=== PATIENT | male | born 1970 | race Caucasian/White ===

== ENCOUNTER → 2016-11-21 | Outpatient (CLI) | payer OTHER ==
[~2016-11-21] MED LIST: LIDOCAINE 1% (MPF) 5 ML VIAL SC ONE; SOD CHLORIDE 0.9% 100 ML ONE
--- NOTE | 2016-11-21 11:52 | RADRPT ---
PROCEDURE: XR Chest. CLINICAL INDICATION: Check PICC line position. TECHNIQUE: Single frontal view. COMPARISON: No prior study is available for comparison. FINDINGS: There is a left arm PICC line with the tip in the lower superior vena cava. there is mild linear at electasis at the left lung base. The lungs are otherwise clear. The heart size is normal. There is no pleural effusion. There is no pneumothorax. IMPRESSION: 1. Left arm PICC line tip in satisfactory position. 2. Mild left basilar atelectasis. 3. Otherwise normal chest radiograph. RPTAT: QQ .Killian Rice MD, MD Date Time Electronically viewed and signed by .Killian Rice MD, on 11/21/2016 11:51 .R/
--- NOTE | 2016-11-21 12:20 | RADRPT ---
PROCEDURE: US guidance for PICC line CLINICAL INDICATION: PICC line placement TECHNIQUE: Multiple real-time images were acquired of the patient's arm utilizing a high resolutio n transducer. This was performed by the PICC line nurse for venous access. COMPARISON: None FINDINGS: Ultrasound guidance for PICC line placement. IMPRESSION: Ultrasound guidance for PICC line placement. RPTAT: AA .Shimon Park MD, MD Date Time Electronically viewed and signed by .Shimon Park MD, on 11/21/2016 12:20 .S/
== END | disposition home or self-care (01) ==
LOC: EDBD 10:11 → RAD 10:11
PROVIDERS: ATTEND Surgery
DX: K63.2 Fistula of intestine (principal)
CPT/HCPCS: 36569; 71010; 76937

== ENCOUNTER → 2016-12-10 | Outpatient (CLI) | payer OTHER ==
--- NOTE | 2016-12-10 12:03 | RADRPT ---
PROCEDURE: XR Chest. CLINICAL INDICATION: PICC line placement TECHNIQUE: Single AP view of the chest were obtained COMPARISON: 11/21/2016 FINDINGS: Left-sided PICC line tip overlies the SVC. The heart and mediastinum are within normal limits. The p ulmonary vasculature are unremarkable. The aorta is unremarkable. There is no lung consolidation, pleural effusion or pneumothorax. There is no acute osseous abnormality. IMPRESSION: No acute disease. Left-sided PICC line appears appropriately positioned. RPTAT: AA .Rehan Perla MD, Date Time Electronically viewed and signed by .Rehan Perla MD, MD on 12/10/2016 12:02 .Selene/
== END | disposition home or self-care (01) ==
LOC: RAD 09:40
PROVIDERS: ATTEND Surgery
DX: Z76.89 Persons encountering health services in other specified circumstances (principal); Z95.828 Presence of other vascular implants and grafts
CPT/HCPCS: 71010